=== PATIENT | female | born 1955 | race Caucasian/White ===

== ENCOUNTER 2022-06-22 06:08 | Day surgery (SDC) | payer MEDICAID, SELFPAY ==
--- NOTE | 2022-06-22 06:29 | W.ANESPRE ---
General Info Date of Service Date Performed: 06/22/22 Height: 5 ft 6 in Weight: 62.142 kg Body Mass Index (BMI): 22.1 Surgical Procedure: Operation Date: 06/22/22 07:40 Proposed Procedure Side Surgeon p Cataract Extraction with IOL Implant Left Pedro Mckinney MD Meds Allergies and Home Medications Allergies Allergy/AdvReac Type Severity Reaction Status Date / Time amoxicillin trihydrate Allergy Intermediate wheezing, Unverified 06/22/22 07:02 [From Augmentin] rash and hives cephalexin monohydrate Allergy Intermediate wheezing, Unverified 06/22/22 07:02 [From Keflex] rash and hives penicillin V Allergy Intermediate wheezing, Unverified 06/22/22 07:02 rash and hives latex Allergy Unverified 06/22/22 07:02 potassium clavulanate Allergy Unverified 06/22/22 07:02 [From Augmentin] red dye Allergy Unverified 06/22/22 07:02 lamotrigine AdvReac Intermediate Nausea Unverified 06/22/22 07:02 oxybutynin AdvReac Intermediate Nausea Unverified 06/22/22 07:02 Home Medication Medication Instructions Recorded Imitrex 50 mg tablet (sumatriptan 50 mg PO ONCE 09/11/16 succinate) naproxen 375 mg tablet 375 mg PO BID 09/11/16 simvastatin 40 mg tablet 40 mg PO DAILY 09/11/16 valacyclovir 1 gram tablet 2,000 mg PO BID 09/11/16 clindamycin HCl 300 mg capsule 300 mg PO DIRECTED 06/19/22 diazepam 10 mg tablet 5 - 10 mg PO BID PRN 06/19/22 lisdexamfetamine 20 mg capsule 20 mg PO DAILY 06/19/22 (Vyvanse) Current Visit Medications: Current Medications Generic Name Dose Route Start Last Admin Trade Name Freq PRN Reason Stop Dose Admin Acetaminophen 1,000 mg 06/22/22 06:00 Acetaminophen 500 Mg Tab PO Q4H PRN PRN Miscellaneous Medication 0 ml 06/22/22 06:00 Tropicam./Phenyleph. (1/2.5%) 5 Ml Btl OS DIRECTED [facility] Miscellaneous Medication 0 ml 06/22/22 06:00 Prednisolone 1%, Moxifloxacin 0.5%, Nepafenac 0.1% 5ml Btl OS DIRECTED [facility] Tetracaine HCl 0 ml 06/22/22 06:00 Tetracaine 0.5% 4 Ml Btl OS DIRECTED [facility] PFSH Active Problems Active Problems: Problem Status Onset Code Cortical cataract of left eye H26.9 Nuclear age-related cataract, left eye H25.12 Medical History Medical History (Updated 06/22/22 @ 07:01 by Emeli Linkage) Atypical hyperplasia of right breast Depression Fracture of tibial shaft, closed Fracture, jaw x8 Fracture, mandible Hx of fracture of tibia bilateral; whitley in left tibia Hypercholesterolemia Hypertension PTSD (post-traumatic stress disorder) Pt. states no known triggers Surgical History Surgical History (Updated 06/22/22 @ 07:01 by Starvine) Biopsy of breast Bladder Suspension Foraminefectomy C spine x2 Hernia repair History of elbow surgery x3 Hx of bilateral hip replacements Retropubic synthetic mesh sling placement for stress incontinence Tobacco Smoking/Tobacco Use Status: Never Alcohol Alcohol Intake: never Substance Use Substance use type: does not use Vital Signs and Lab Results Vital Signs Most Recent Vital Signs in EMR: Temp Pulse Resp BP Pulse Ox 37.1 C 67 18 111/67 97 06/22/22 06:31 06/22/22 06:31 06/22/22 06:31 06/22/22 06:31 06/22/22 06:31 Lab Results Blood Type / Crossmatch: No Data to Display Complete Blood Count: No Data to Display Complete Metabolic Panel: No Data to Display Liver Function Panel: No Data to Display Coagulation Panel: No Data to Display Cardiac Panel: No Data to Display Arterial Blood Gas: No Data to Display Venous Blood Gas: No Data to Display Pancreas Panel: No Data to Display Thyroid Panel: No Data to Display Infectious Disease: No Data to Display Blood Cultures: No Data to Display Toxicology Panel: No Data to Display Anesthesia Assessment and Plan Anesthesia History Personal History: No History of Anesthesia Complications Family History: No Family History of Anesthesia Complications Exercise Tolerance Exercise Tolerance: Metabolic Equivalents>4 Cardiac & Pulmonary Exam Cardiac Exam: Normal S1/S2 Heart Sounds Pulmonary Exam: Clear Bilateral Breath Sounds Implantable Cardiac Device Does patient have a Pacemaker or an ICD?: No Airway Exam Known Difficult Airway: No Mallampati Class: 2 Mouth Opening: Normal (> 3cm) Thyromental Distance: Greater than 3 cm Neck Range of Motion: Full ROM Neck Circumference: Normal Teeth Condition: Generalized Poor Dentition and Removable Dentures/Plates Upper ASA Classification ASA Score: ASA 2 Emergency Case?: No NPO Status NPO Status: NPO Clears >2 hours, Solids >8 hours Anesthesia Plan Resuscitation Status: Full Code Anesthesia Technique: MAC Anesthesia Airway Planned: Natural Airway Monitors Used: Standard Monitors Preoperative Comments:: 66 yo female for cataract removal. Does not want MKO. Sig PMHx: HTN, PTSD/anxiety, c spine surgery (good neck mobility), never smoker/etoh. States has had EKG and stress tests that where unremarkable.
[2022-06-22 06:31] VITALS: BP 111/67; PULSE 67; RESP 18; TEMP 37.1; O2SAT 97
[2022-06-22] MEDS: Tropicam./Phenyleph. (1/2.5%) 5 ML BTL OS ×3 (06:52→07:05)
[2022-06-22 07:02] VITALS: BMI 22.1
[2022-06-22] MEDS: Lidocaine 1% Pres-Free 5 ML VIAL (07:33)
[2022-06-22] MEDS: Duovisc Viscoelastic System EACH 1 EACH (07:34)
[2022-06-22] MEDS: Balanced Salt Soln.-PLUS 500 ML BAG (07:34)
[2022-06-22] MEDS: Phenylephrine/Lidocaine (15/10) MG/ML 1 ML VIAL (07:34)
[2022-06-22] MEDS: Tetracaine 0.5% 4 ML BTL OS (07:35)
[2022-06-22] MEDS: Povidone-Iodine Ophth 30 ML BTL (07:35)
[2022-06-22 07:50] VITALS: BP 113/68; PULSE 64; RESP 18; TEMP 36.2; O2SAT 98
--- NOTE | 2022-06-22 07:51 | W.PM.DSUDISC ---
Date of service: 06/22/22 Time of Service: 07:51 Discharge Plan Disposition Patient Disposition: Home Discharge Details Attending Provider: Pedro Mckinney Primary Care Provider: Lorraine Camejo Home Meds and New Rx's Prescriptions: No Action naproxen 375 MG tablet 375 mg PO BID valacyclovir 1,000 MG tablet 2,000 mg PO BID sumatriptan succinate [Imitrex] 50 MG tablet 50 mg PO ONCE simvastatin 40 MG tablet 40 mg PO DAILY clindamycin HCl 300 mg Capsule 300 mg PO DIRECTED diazepam 10 mg Tablet 5 - 10 mg PO BID PRN Vyvanse 20 mg Capsule 20 mg PO DAILY Discharge Instructions Stand Alone Forms: Post-op Topical Cataract, Oc Bruno (DSU) Discharge Orders Discharge Orders: Discharge Order (Routine); Ordered 06/22/22 Ordered By: Pedro Mckinney DS: Diagnosis Discharge Diagnosis (1) Nuclear age-related cataract, left eye: Status: Resolved (2) Cortical cataract of left eye: Status: Resolved
--- NOTE | 2022-06-22 07:52 | W.PM.OP ---
Date of service: 06/22/22 Time of Service: 07:52 Operative Note Operative Note DATE OF PROCEDURE: 06/22/22 PRE-OP DIAGNOSIS: Nuclear/cortical cataract, left eye POST-OP DIAGNOSIS: same PROCEDURE: Cataract extraction using phacoemulsification with intraocular lens implant, left eye SURGEON: Pedro Mckinney ANESTHESIA TYPE: Local By Surgeon and MAC Refer to Anesthesia Record PATHOLOGY: none sent COMPLICATIONS: None Patient was transported to: same day Patient's condition: stable Implants: Luis and Luis Tecnis Eyhance [id number] Indications: Progressive decreased vision due to cataract, left eye Procedure Description: CATARACT SURGERY OPERATIVE REPORT PREOPERATIVE DIAGNOSIS: 1. Nuclear/cortical cataract, left eye POSTOPERATIVE DIAGNOSIS: Same OPERATION: 1. Cataract extraction using phacoemulsification with posterior chamber intraocular lens implant, left eye. IOL: IOL Speech Therapy Assistant/Model: Luis & Luis Tecnis Eyhance DIB00 IOL Power: + 22.5 diopters IOL Serial Number: [id number] Optic Diameter: 6.0 mm Haptic/Overall Diameter: 13.0 mm PHACO INFO: RebelCanaryon Vision System with OZil and Active Fluidics Cumulative Dispersed Energy (CDE): 5.54 seconds SURGEON: Pedro Mckinney MD, CHARLETTE ANESTHESIA: Monitored A [facility] (MAC), with local sub-tenon's anesthetic infiltration COMPLICATIONS: None SPECIMENS: None INDICATIONS FOR PROCEDURE: The patient is a 66-year-old lady with history of diminished visual acuity in her left eye secondary to the development of nuclear/cortical cataract. She has previously undergone myopic LASIK. She is significantly symptomatic from cataract that she desires cataract surgery and attempt to improve and maximize her vision. PROCEDURE: The correct surgical eye was identified and marked as the left eye and the pupil was dilated in the preoperative area using mydriatics and cycloplegics. The dilated pupil size was 7.0 mm. The patient elected to proceed without oral sedation. The patient was brought to the operating room where cardiopulmonary monitoring was instituted and surgical time-out was performed, confirming the correct operative eye and IOL power. Topical anesthesia was administered and ophthalmic povidone-iodine 5% was instilled into the conjunctival fornices. Lidocaine gel was applied to the cornea and the kaye-ocular area was prepped with Betadine 10% solution and draped in the usual sterile fashion for intraocular surgery, including an aperture drape. A Tegaderm transparent film dressing was cut in half and used to cover the lashes and lid margins. Care was taken to sequester the lashes and lid margins under the Tegaderm dressing. A lid speculum was placed between the lids of the operative eye and the Rebel LuxOR Revalia operating microscope was maneuvered into position. Malu scissors were then used to make a conjunctival buttonhole approximately 6mm posterior to the limbus in the inferonasal quadrant. Blunt dissection was carried out to expose bare sclera, and a blunt-tipped sub-tenon?s anesthesia cannula was introduced and passed posteriorly along the globe where non-preserved plain lidocaine was injected into posterior sub-Tenon?s space. A sideport knife was used to make a paracentesis port superiorly/superiortemporally. Intraocular phenylephrine/lidocaine was injected int the anterior chamber.. The anterior chamber was filled with viscoelastic. A keratome knife was used to construct a 2-plane near-clear corneal tunnel extending 2.0mm into clear cornea temporally. A flap was raised on the anterior capsule and capsulorhexis forceps were used to complete a continuous curvilinear capsulorhexis of 5.5 mm. Balanced salt solution was then used to perform cortical cleaving hydrodissection and nuclear hydrodelineation until the lens could be freely rotated within the capsular bag. The lens nucleus was then disassembled and removed within the capsular bag and iris plane using phacoemulsification. Residual cortical material was removed using the 45-degree angled silicone I/A tip with 0.3mm port. The posterior capsule was carefully polished to remove as much residual lens epithelial cells as safely possible. The capsular bag was then inflated and the anterior chamber deepened with viscoelastic. The lens implant described above was inserted into the capsular bag using the Luis and Luis Simplicity pre-loaded injector. . A Kuglen hook was used to dial the IOL into position. Residual viscoelastic was then removed first from posterior to the IOL, then from the anterior chamber using the I/A handpiece. The lens implant was noted to center nicely within the capsular bag. The incisions were stromally hydrated, and the anterior chamber was reformed using BSS. Then 0.5cc of moxifloxacin 1.0mg/ml were injected into the capsular bag and anterior chamber. The incisions were checked with a Weck spear and found to be secure. Several drops of ophthalmic povidone-iodine 5% were then applied to the eye followed by two drops of Imprimis combination prednisolone/moxifloxacin/nepafenac solution. The drapes were removed and a clear plastic protective eye shield was placed over the eye. The patient was then returned to Same Day Surgery in stable condition.
--- NOTE | 2022-06-22 08:02 | W.ANESPOSTOP ---
Postoperative Evaluation Date, Time and Location Date Performed: 06/22/22 Time Performed: 07:59 Patient Location: Day Surgery Unit Vital Signs Most Recent Imported Vital Signs: Most Recent Vital Signs Temp Pulse Resp BP Pulse Ox 36.2 C L 64 18 113/68 98 06/22/22 07:50 06/22/22 07:50 06/22/22 07:50 06/22/22 07:50 06/22/22 07:50 Pain Score Most Recent Pain Score: Most Recent Pain Score Pain Level 0 06/22/22 07:50 Assessment Mental Status: Awake (Alert & Oriented to Patient Baseline) Airway and Respiratory Function: Patent airway with normal (patient baseline) respiratory exam Cardiovascular Function: Hemodynamically Stable Hydration Status: Adequately Hydrated Nausea & Vomiting: No Nausea or Vomiting Pain: Pt. Denies Any Pain Peripheral Nerve Block: Patient did not receive a nerve block
== END 2022-06-22 08:30 | disposition home or self-care (01) ==
PROVIDERS: PCP Legal Medicine; Visit Provider Ophthalmology
PROC: (CPT 66984; principal; 2022-06-22 07:30)
DX: H25.12 Age-related nuclear cataract, left eye (principal); I10 Essential (primary) hypertension
CPT/HCPCS: 66984; V2632

== ENCOUNTER 2022-07-06 06:05 | Day surgery (SDC) | payer MEDICAID, SELFPAY ==
[2022-07-06 06:30] VITALS: BP 112/65; PULSE 58; RESP 16; TEMP 36.7; O2SAT 16
[2022-07-06] MEDS: Tropicam./Phenyleph. (1/2.5%) 5 ML BTL OD ×3 (06:39→06:50)
--- NOTE | 2022-07-06 06:57 | W.PREOPHP ---
History of Present Illness History of Present Illness Chief Complaint: Progressive decreased vision, right eye Narrative: The patient is a 66-year-old lady with history of having undergone myopic LASIK. She presented with complaints of progressive decreased vision in both eyes with foggy vision, and significant nighttime glare. She notes difficulty with near vision as well. On examination she was noted to have bilateral nuclear/cortical cataract. She underwent cataract surgery in the left eye on 06/22/2022, and is doing well postoperatively. She now presents for cataract surgery in the right eye. Review of Systems All systems reviewed & are unremarkable except as noted in HPI and below PFSH All Active Problems Cortical cataract of right eye (Acute) Nuclear age-related cataract, right eye (Acute) Medical History Atypical hyperplasia of right breast Depression Fracture of tibial shaft, closed Fracture, jaw x8 Fracture, mandible Hx of fracture of tibia bilateral; whitley in left tibia Hypercholesterolemia Hypertension PTSD (post-traumatic stress disorder) Pt. states no known triggers Surgical History Biopsy of breast Bladder Suspension Foraminefectomy C spine x2 Hernia repair History of cataract surgery History of elbow surgery x3 Hx of bilateral hip replacements Retropubic synthetic mesh sling placement for stress incontinence Social History Smoking/Tobacco Use Status: Never Smoking risk assessment performed?: Yes Alcohol Intake: never Substance use type: does not use Do you feel safe at home: Yes Do you feel safe in your relationship?: Yes Meds Allergies and Home Medications Allergies Allergy/AdvReac Type Severity Reaction Status Date / Time amoxicillin trihydrate Allergy Intermediate wheezing, Unverified 07/06/22 06:32 [From Augmentin] rash and hives cephalexin monohydrate Allergy Intermediate wheezing, Unverified 07/06/22 06:32 [From Keflex] rash and hives penicillin V Allergy Intermediate wheezing, Unverified 07/06/22 06:32 rash and hives latex Allergy patient Unverified 07/06/22 06:32 denies potassium clavulanate Allergy Unverified 07/06/22 06:32 [From Augmentin] red dye Allergy patient Unverified 07/06/22 06:32 denies lamotrigine AdvReac Intermediate Nausea Unverified 07/06/22 06:32 oxybutynin AdvReac Intermediate Nausea Unverified 07/06/22 06:32 Home Medications Medication Instructions Recorded Confirmed Type simvastatin 40 mg tablet 40 mg PO DAILY 09/11/16 07/06/22 History valacyclovir 1 gram tablet 2,000 mg PO BID 09/11/16 07/06/22 History clindamycin HCl 300 mg capsule 300 mg PO DIRECTED 06/19/22 06/22/22 History diazepam 10 mg tablet 5 - 10 mg PO BID PRN 06/19/22 07/06/22 History lisdexamfetamine 20 mg capsule 20 mg PO DAILY PRN 06/19/22 07/06/22 History (Vyvanse) Exam Eyes Other: See office note for detailed ophthalmic examination. Corrected visual acuity is 20/25 in each eye. Extraocular motility is normal. Intraocular pressure is 9 in each eye. Pupils dilate to 6 mm. Slit-lamp examination is significant for a well-positioned PCIOL OS. Moderate cortical cataract is present in the right eye with a mild nuclear cataract. Funduscopic examination reveals disc cupping of 0.35 OU with normal vessels, macula, peripheral retina and vitreous. Resp Auscultation: clear to auscultation bilaterally Cardio Rate: regular rate Rhythm: regular rhythm Results Last Vital Signs Temp 36.7 C 07/06/22 06:30 Pulse 58 L 07/06/22 06:30 Resp 16 07/06/22 06:30 BP 112/65 07/06/22 06:30 Pulse Ox 16 L 07/06/22 06:30
[2022-07-06 07:07] VITALS: BMI 21.2
--- NOTE | 2022-07-06 07:07 | ANES.PREOP_ITS ---
General Info Date of Service Date Performed: 07/06/22 Height: 5 ft 7 in Weight: 61.3 kg Body Mass Index (BMI): 21.2 Surgical Procedure: Operation Date: 07/06/22 07:40 Proposed Procedure Side Surgeon p Cataract Extraction with IOL Implant Right Pedro Mckinney MD Meds Allergies and Home Medications Allergies Allergy/AdvReac Type Severity Reaction Status Date / Time amoxicillin trihydrate Allergy Intermediate wheezing, Unverified 07/06/22 06:32 [From Augmentin] rash and hives cephalexin monohydrate Allergy Intermediate wheezing, Unverified 07/06/22 06:32 [From Keflex] rash and hives penicillin V Allergy Intermediate wheezing, Unverified 07/06/22 06:32 rash and hives latex Allergy patient Unverified 07/06/22 06:32 denies potassium clavulanate Allergy Unverified 07/06/22 06:32 [From Augmentin] red dye Allergy patient Unverified 07/06/22 06:32 denies lamotrigine AdvReac Intermediate Nausea Unverified 07/06/22 06:32 oxybutynin AdvReac Intermediate Nausea Unverified 07/06/22 06:32 Home Medication Medication Instructions Recorded simvastatin 40 mg tablet 40 mg PO DAILY 09/11/16 valacyclovir 1 gram tablet 2,000 mg PO BID 09/11/16 clindamycin HCl 300 mg capsule 300 mg PO DIRECTED 06/19/22 diazepam 10 mg tablet 5 - 10 mg PO BID PRN 06/19/22 lisdexamfetamine 20 mg capsule 20 mg PO DAILY PRN 06/19/22 (Vyvanse) Current Visit Medications: Current Medications Generic Name Dose Route Start Last Admin Trade Name Freq PRN Reason Stop Dose Admin Acetaminophen 1,000 mg 07/06/22 06:00 Acetaminophen 500 Mg Tab PO Q4H PRN PRN Miscellaneous Medication 0 ml 07/06/22 06:00 07/06/22 06:50 Tropicam./Phenyleph. (1/2.5%) 5 Ml Btl OD 1 drp DIRECTED [facility] Administration Miscellaneous Medication 0 ml 07/06/22 06:00 Prednisolone 1%, Moxifloxacin 0.5%, Nepafenac 0.1% 5ml Btl OD DIRECTED [facility] Tetracaine HCl 0 ml 07/06/22 06:00 Tetracaine 0.5% 4 Ml Btl OD DIRECTED [facility] Active Problems Active Problems: Problem Status Onset Code Cortical cataract of right eye H26.9 Nuclear age-related cataract, right eye H25.11 Nuclear age-related cataract, left eye H25.12 Cortical cataract of left eye H26.9 Medical History Medical History Atypical hyperplasia of right breast Depression Fracture of tibial shaft, closed Fracture, jaw x8 Fracture, mandible Hx of fracture of tibia bilateral; whitley in left tibia Hypercholesterolemia Hypertension PTSD (post-traumatic stress disorder) Pt. states no known triggers Surgical History Surgical History Biopsy of breast Bladder Suspension Foraminefectomy C spine x2 Hernia repair History of cataract surgery History of elbow surgery x3 Hx of bilateral hip replacements Retropubic synthetic mesh sling placement for stress incontinence Tobacco Smoking/Tobacco Use Status: Never Alcohol Alcohol Intake: never Substance Use Substance use type: does not use Vital Signs and Lab Results Vital Signs Most Recent Vital Signs in EMR: Most Recent Vital Signs Temp Pulse Resp BP Pulse Ox 36.7 C 58 L 16 112/65 16 L 07/06/22 06:30 07/06/22 06:30 07/06/22 06:30 07/06/22 06:30 07/06/22 06:30 Lab Results Blood Type / Crossmatch: No Data to Display Complete Blood Count: No Data to Display Complete Metabolic Panel: No Data to Display Liver Function Panel: No Data to Display Coagulation Panel: No Data to Display Cardiac Panel: No Data to Display Arterial Blood Gas: No Data to Display Venous Blood Gas: No Data to Display Pancreas Panel: No Data to Display Thyroid Panel: No Data to Display Infectious Disease: No Data to Display Blood Cultures: No Data to Display Toxicology Panel: No Data to Display Anesthesia Assessment and Plan Anesthesia History Personal History: No History of Anesthesia Complications Family History: No Family History of Anesthesia Complications Exercise Tolerance Exercise Tolerance: Metabolic Equivalents>4 Cardiac & Pulmonary Exam Cardiac Exam: Normal S1/S2 Heart Sounds Pulmonary Exam: Clear Bilateral Breath Sounds Implantable Cardiac Device Does patient have a Pacemaker or an ICD?: No Airway Exam Known Difficult Airway: No Mallampati Class: 2 Mouth Opening: Normal (> 3cm) Thyromental Distance: Greater than 3 cm Neck Range of Motion: Full ROM Neck Circumference: Normal Teeth Condition: Generalized Poor Dentition and Removable Dentures/Plates Upper ASA Classification ASA Score: ASA 2 Emergency Case?: No NPO Status NPO Status: NPO Clears >2 hours, Solids >8 hours Anesthesia Plan Resuscitation Status: Full Code Anesthesia Technique: MAC Anesthesia Airway Planned: Natural Airway Monitors Used: Standard Monitors
[2022-07-06] MEDS: Tetracaine 0.5% 4 ML BTL OD (07:22)
[2022-07-06] MEDS: Lidocaine 1% Pres-Free 5 ML VIAL (07:30)
[2022-07-06] MEDS: Balanced Salt Soln.-PLUS 500 ML BAG (07:31)
[2022-07-06] MEDS: Phenylephrine/Lidocaine (15/10) MG/ML 1 ML VIAL (07:31)
[2022-07-06] MEDS: Povidone-Iodine Ophth 30 ML BTL (07:31)
[2022-07-06] MEDS: Duovisc Viscoelastic System EACH 1 EACH (07:32)
[2022-07-06 07:45] VITALS: BP 99/76; PULSE 60; RESP 18; TEMP 36.4; O2SAT 99
--- NOTE | 2022-07-06 07:46 | W.PM.OP ---
Date of service: 07/06/22 Time of Service: 07:46 Operative Note Operative Note DATE OF PROCEDURE: 07/06/22 PRE-OP DIAGNOSIS: Nuclear/cortical cataract, left eye POST-OP DIAGNOSIS: same MRI PROCEDURE: Cataract extraction using phacoemulsification with intraocular lens implant, right eye SURGEON: Pedro Mckinney ANESTHESIA TYPE: Local By Surgeon and MAC Refer to Anesthesia Record ESTIMATED BLOOD LOSS: 0 PATHOLOGY: none sent COMPLICATIONS: None Patient was transported to: same day Patient's condition: stable Implants: [employer] Luis Tecnis Eyhance [id number] Indications: Progressive visual loss due to cataract, right eye Procedure Description: CATARACT SURGERY OPERATIVE REPORT PREOPERATIVE DIAGNOSIS: 1. Nuclear/cortical cataract, right eye POSTOPERATIVE DIAGNOSIS: Same OPERATION: 1. Cataract extraction using phacoemulsification with posterior chamber intraocular lens implant, right eye. IOL: IOL Silk Spotter/Model: [employer]nis Eyhance DIB00 IOL Power: + 22.0 diopters IOL Serial Number: [id number] Optic Diameter: 6.0mm Haptic/Overall Diameter: 13.0mm PHACO INFO: Rebel YouStickerurion Vision System with OZil and Active Fluidics Cumulative Dispersed Energy (CDE): 7.53 seconds SURGEON: Pedro Mckinney MD, CHARLETTE ANESTHESIA: Monitored Anesthesia Care (MAC), with local sub-tenon's anesthetic infiltration COMPLICATIONS: None SPECIMENS: None INDICATIONS FOR PROCEDURE: The patient is a 66-year-old lady who has previously undergone myopic laser vision correction in both eyes. She has developed symptomatic bilateral nuclear/cortical cataracts. She has already undergone cataract surgery in the left eye and is doing well postoperatively. She now presents for cataract surgery in the right eye. See clinical chart for detailed notes. PROCEDURE: The correct surgical eye was identified and marked as the right eye and the pupil was dilated in the preoperative area using mydriatics and cycloplegics. The dilated pupil size was 8.0 mm. . The patient elected to proceed without oral sedation. The patient was brought to the operating room where cardiopulmonary monitoring was instituted and surgical time-out was performed, confirming the correct operative eye and IOL power. Topical anesthesia was administered and ophthalmic povidone-iodine 5% was instilled into the conjunctival fornices. Lidocaine gel was applied to the cornea and the kaye-ocular area was prepped with Betadine 10% solution and draped in the usual sterile fashion for intraocular surgery, including an aperture drape. A Tegaderm transparent film dressing was cut in half and used to cover the lashes and lid margins. Care was taken to sequester the lashes and lid margins under the Tegaderm dressing. A lid speculum was placed between the lids of the operative eye and the Rebel LuxOR Revalia operating microscope was maneuvered into position. Malu scissors were then used to make a conjunctival buttonhole approximately 6mm posterior to the limbus in the inferonasal quadrant. Blunt dissection was carried out to expose bare sclera, and a blunt-tipped sub-tenon?s anesthesia cannula was introduced and passed posteriorly along the globe where non-preserved plain lidocaine was injected into posterior sub-Tenon?s space. A sideport knife was used to make a paracentesis port inferotemporally. Intraocular phenylephrine/lidocaine was injected into the anterior chamber. The anterior chamber was filled with viscoelastic. A keratome knife was used to construct a 2-plane near-clear corneal tunnel extending 2.0mm into clear cornea superiortemporally. A flap was raised on the anterior capsule and capsulorhexis forceps were used to complete a continuous curvilinear capsulorhexis of 5.5 mm. Balanced salt solution was then used to perform cortical cleaving hydrodissection and nuclear hydrodelineation until the lens could be freely rotated within the capsular bag. The lens nucleus was then disassembled and removed within the capsular bag and iris plane using phacoemulsification. Residual cortical material was removed using the I/A handpiece. The posterior capsule was carefully polished to remove as much residual lens epithelial cells as safely possible. The capsular bag was then inflated and the anterior chamber deepened with viscoelastic. The lens implant described above was inserted into the capsular bag using the Luis [employer] Dev[employer] Simplicity pre-loaded injector. A Kuglen hook was used to dial the IOL into position. Residual viscoelastic was then removed first from posterior to the IOL, then from the anterior chamber using the I/A handpiece. The lens implant was noted to center nicely within the capsular bag. The incisions were stromally hydrated, and the anterior chamber was reformed using BSS. Then 0.5cc of moxifloxacin 1.0mg/ml were injected into the capsular bag and anterior chamber. The incisions were checked with a Weck spear and found to be secure. Several drops of ophthalmic povidone-iodine 5% were then applied to the eye followed by two drops of Imprimis combination prednisolone/moxifloxacin/nepafenac solution. The drapes were removed and a clear plastic protective eye shield was placed over the eye. The patient was then returned to [facility] Day Surgery in stable condition.
--- NOTE | 2022-07-06 08:01 | W.ANESPOSTOP ---
Postoperative Evaluation Date, Time and Location Date Performed: 07/06/22 Time Performed: 07:55 Patient Location: Day Surgery Unit Vital Signs Most Recent Imported Vital Signs: Most Recent Vital Signs Temp Pulse Resp BP Pulse Ox 36.4 C L 60 18 99/76 L 99 07/06/22 07:45 07/06/22 07:45 07/06/22 07:45 07/06/22 07:45 07/06/22 07:45 Pain Score Most Recent Pain Score: Most Recent Pain Score Pain Level 0 07/06/22 07:45 Assessment Mental Status: Awake (Alert & Oriented to Patient Baseline) Airway and Respiratory Function: Patent airway with normal (patient baseline) respiratory exam Cardiovascular Function: Hemodynamically Stable Hydration Status: Adequately Hydrated Nausea & Vomiting: No Nausea or Vomiting Pain: Pt. Denies Any Pain Peripheral Nerve Block: Patient did not receive a nerve block
== END 2022-07-06 08:30 | disposition home or self-care (01) ==
LOC: SUR 06:06
PROVIDERS: PCP Legal Medicine; Visit Provider Ophthalmology
PROC: (CPT 66984; principal; 2022-07-06 07:30)
DX: Z98.42 Cataract extraction status, left eye (principal); I10 Essential (primary) hypertension; H25.11 Age-related nuclear cataract, right eye; H26.9 Unspecified cataract
CPT/HCPCS: 66984; V2632